=== PATIENT | female | born 1975 | race Caucasian/White ===

== ENCOUNTER 2016-06-26 07:59 | Emergency (ER) | payer OTHER ==
[~2016-06-26] VITALS: Ht 175.3 cm; Wt 81.7 kg
[~2016-06-26 07:59] MED LIST: CYCLOBENZAPRINE10 MG PO; CYCLOBENZAPRINE5 MG PO; DELTASONE20 MG PO; FLEXERIL PO; IBUPROFEN 600600 M1 PO; LIORESAL 10 MG10 MG PO; NAPROSYN500 MG PO; PREDNISONE 20 M20 MG PO; ROBAXIN500 MG PO; TESSALON PERLE100 MG PO; TRAMADOL 50 MG50 MG PO; ULTRAM 50MG TAB50 MG PO; ZOFRAN ODT4 MG PO
[2016-06-26 08:03] VITALS: BP 121/78
[2016-06-26] MEDS ORDERED: FLEXERIL PO (08:05)
[2016-06-26] MEDS ORDERED: TRAMADOL 50 MG50 MG PO (08:16)
== END 2016-06-26 08:24 | disposition home or self-care (01) ==
LOC: ER 07:59
DX: M25.511 Pain in right shoulder (principal); Z90.710 Acquired absence of both cervix and uterus; M54.30 Sciatica, unspecified side; F17.210 Nicotine dependence, cigarettes, uncomplicated

== ENCOUNTER 2016-07-12 08:12 | Emergency (ER) | payer OTHER ==
[~2016-07-12] VITALS: Ht 175.3 cm; Wt 81.7 kg
[2016-07-12 08:12] VITALS: BP 114/58
[2016-07-12] MEDS ORDERED: MEDROLDOSEPACK PO (08:52)
[2016-07-12] MEDS ORDERED: ULTRAM 50MG TAB50 MG PO (08:52)
== END 2016-07-12 09:19 | disposition home or self-care (01) ==
LOC: ER 08:12
DX: M77.11 Lateral epicondylitis, right elbow (principal); Z90.710 Acquired absence of both cervix and uterus; Z87.891 Personal history of nicotine dependence

== ENCOUNTER 2016-07-19 09:16 | Emergency (ER) | payer OTHER ==
[~2016-07-19] VITALS: Ht 175.3 cm; Wt 81.7 kg
[~2016-07-19 09:16] MED LIST changes: +MEDROLDOSEPACK PO
[2016-07-19 09:18] VITALS: BP 122/103
[2016-07-19] MEDS ORDERED: ULTRAM 50MG TAB50 MG PO (09:32)
[2016-07-19] MEDS ORDERED: DELTASONE20 MG PO (09:33)
== END 2016-07-19 09:39 | disposition home or self-care (01) ==
LOC: ER 09:16
DX: M54.41 Lumbago with sciatica, right side (principal); Z90.710 Acquired absence of both cervix and uterus; Z87.891 Personal history of nicotine dependence

== ENCOUNTER 2016-08-11 15:06 | Emergency (ER) | payer OTHER ==
[~2016-08-11] VITALS: Ht 175.3 cm; Wt 79.4 kg
[2016-08-11 15:06] VITALS: BP 128/68
[2016-08-11] MEDS ORDERED: MELOXICAM7.5 MG PO (15:11)
[2016-08-11] MEDS ORDERED: TRAMADOL 50 MG50 MG PO (15:15)
[2016-08-11] MEDS ORDERED: MEDROLDOSEPACK PO (15:15)
[2016-08-11] MEDS ORDERED: FLEXERIL PO (15:15)
== END 2016-08-11 15:28 | disposition home or self-care (01) ==
LOC: ER 15:06
DX: M54.41 Lumbago with sciatica, right side (principal); Z90.710 Acquired absence of both cervix and uterus; Z87.891 Personal history of nicotine dependence

== ENCOUNTER 2016-09-20 17:25 | Emergency (ER) | payer OTHER ==
[~2016-09-20] VITALS: Ht 175.3 cm; Wt 79.4 kg
[2016-09-20 17:25] VITALS: BP 127/81
[~2016-09-20 17:25] MED LIST changes: +MEDROL DOSPAK21 TAB PO; +MELOXICAM7.5 MG PO
[2016-09-20] MEDS ORDERED: ULTRAM 50MG TAB50 MG PO (17:44)
[2016-09-20] MEDS ORDERED: PREDNISONE 20 M20 MG PO (17:45)
[2016-09-20] MEDS ORDERED: CYCLOBENZAPRINE5 MG PO (17:45)
== END 2016-09-20 17:49 | disposition home or self-care (01) ==
LOC: ER 17:25
DX: S46.911A Strain of unspecified muscle, fascia and tendon at shoulder and upper arm level, right arm, initial encounter (principal); Z90.710 Acquired absence of both cervix and uterus; X50.0XXA Overexertion from strenuous movement or load, initial encounter; Y93.69 Activity, other involving other sports and athletics played as a team or group; Y92.34 Swimming pool (public) as the place of occurrence of the external cause; Y99.8 Other external cause status

== ENCOUNTER 2016-11-14 14:59 | Emergency (ER) | payer OTHER ==
[~2016-11-14] VITALS: Ht 175.3 cm; Wt 79.4 kg
[2016-11-14 15:01] VITALS: BP 127/83
[2016-11-14] MEDS ORDERED: TRAMADOL 50 MG50 MG PO (15:16)
== END 2016-11-14 15:44 | disposition home or self-care (01) ==
LOC: ER 14:59
DX: M25.511 Pain in right shoulder (principal); F10.99 Alcohol use, unspecified with unspecified alcohol-induced disorder; Z90.710 Acquired absence of both cervix and uterus

== ENCOUNTER 2016-12-06 08:00 | Emergency (ER) | payer OTHER ==
[~2016-12-06] VITALS: Ht 175.3 cm; Wt 79.4 kg
[2016-12-06] MEDS ORDERED: TUSSIONEX PENN115 ML PO (08:49)
[2016-12-06] MEDS ORDERED: PREDNISONE 20 M20 MG PO (08:49)
[2016-12-06 09:10] VITALS: BP 117/72
== END 2016-12-06 09:10 | disposition home or self-care (01) ==
LOC: ER 08:00
DX: J06.9 Acute upper respiratory infection, unspecified (principal); M54.31 Sciatica, right side; F10.99 Alcohol use, unspecified with unspecified alcohol-induced disorder; Z90.710 Acquired absence of both cervix and uterus; Z87.891 Personal history of nicotine dependence

== ENCOUNTER 2017-04-01 14:36 | Emergency (ER) | payer OTHER ==
[~2017-04-01] VITALS: Ht 175.3 cm; Wt 79.4 kg
[~2017-04-01 14:36] MED LIST changes: +TUSSIONEX PENN115 ML PO
[2017-04-01] MEDS ORDERED: TRAMADOL 50 MG50 MG PO (15:38)
[2017-04-01] MEDS ORDERED: NORFLEX100 MG PO (15:38)
== END 2017-04-01 17:39 | disposition home or self-care (01) ==
LOC: ER 14:36
DX: J03.90 Acute tonsillitis, unspecified (principal); M62.830 Muscle spasm of back; G89.29 Other chronic pain; M54.30 Sciatica, unspecified side; F10.99 Alcohol use, unspecified with unspecified alcohol-induced disorder; Z90.710 Acquired absence of both cervix and uterus; Z87.891 Personal history of nicotine dependence

== ENCOUNTER 2017-05-09 07:55 | Emergency (ER) | payer OTHER ==
[~2017-05-09] VITALS: Ht 175.3 cm; Wt 79.4 kg
[~2017-05-09 07:55] MED LIST changes: +NORFLEX100 MG PO
[2017-05-09] MEDS ORDERED: ULTRAM 50MG TAB50 MG PO (08:42)
== END 2017-05-09 09:12 | disposition home or self-care (01) ==
LOC: ER 07:55
DX: M72.2 Plantar fascial fibromatosis (principal); M54.30 Sciatica, unspecified side; Z90.710 Acquired absence of both cervix and uterus; Z87.891 Personal history of nicotine dependence

== ENCOUNTER 2017-07-04 07:58 | Emergency (ER) | payer OTHER ==
[~2017-07-04] VITALS: Ht 175.3 cm; Wt 77.1 kg
[2017-07-04 08:05] VITALS: BP 105/45
[2017-07-04] MEDS ORDERED: PENICILLIN VK500 M1 PO (08:14)
[2017-07-04] MEDS ORDERED: TRAMADOL 50 MG50 MG PO (08:14)
[2017-07-04] MEDS ORDERED: CELEXA10 MG PO (08:19)
== END 2017-07-04 08:29 | disposition home or self-care (01) ==
LOC: ER 07:58
DX: K05.10 Chronic gingivitis, plaque induced (principal); Z87.891 Personal history of nicotine dependence; Z90.710 Acquired absence of both cervix and uterus

== ENCOUNTER 2017-10-01 16:35 | Emergency (ER) | payer OTHER ==
[~2017-10-01] VITALS: Ht 175.3 cm; Wt 74.8 kg
[~2017-10-01 16:35] MED LIST changes: +CELEXA10 MG PO; +PENICILLIN VK500 M1 PO
[2017-10-01 17:12] VITALS: BP 125/78
[2017-10-01] MEDS ORDERED: TRAMADOL 50 MG50 MG PO (17:15)
[2017-10-01] MEDS ORDERED: IBUPROFEN 200200 M1 PO (17:15)
[2017-10-01] MEDS ORDERED: TORADOL 10 MG T10 MG PO (18:00)
[2017-10-01] MEDS ORDERED: ULTRAM 50MG TAB50 MG PO (18:05)
== END 2017-10-01 18:07 | disposition home or self-care (01) ==
LOC: ER 16:35
DX: S46.911A Strain of unspecified muscle, fascia and tendon at shoulder and upper arm level, right arm, initial encounter (principal); Z90.710 Acquired absence of both cervix and uterus; Z87.891 Personal history of nicotine dependence; W11.XXXA Fall on and from ladder, initial encounter; Y93.89 Activity, other specified; Y92.89 Other specified places as the place of occurrence of the external cause; Y99.8 Other external cause status

== ENCOUNTER 2018-09-22 16:26 | Emergency (ER) | payer OTHER ==
[~2018-09-22] VITALS: Ht 175.3 cm; Wt 79.4 kg
[~2018-09-22 16:26] MED LIST changes: +IBUPROFEN 200200 M1 PO; +TORADOL 10 MG T10 MG PO
[2018-09-22 16:27] VITALS: BP 109/82
[2018-09-22] MEDS ORDERED: MAGIC MOUTHWASH SWISH&SPIT (18:07)
[2018-09-22] MEDS ORDERED: AMOXICILLIN500 M1 PO (18:07)
== END 2018-09-22 18:10 | disposition home or self-care (01) ==
LOC: ER 16:26
DX: K13.79 Other lesions of oral mucosa (principal); M54.30 Sciatica, unspecified side; Z87.891 Personal history of nicotine dependence; Z90.710 Acquired absence of both cervix and uterus